=== PATIENT | male | born 1950 | race Hispanic/Latino ===

== ENCOUNTER 2020-04-07 12:34 | Outpatient (CLI) | payer MEDICARE, SELFPAY ==
--- NOTE | ~2020-04-07 | CT_ITS ---
EXAMINATION: CT chest high resolution wo vt DATE: 04/07/2020 13:03 INDICATION: Bronchiectasis, uncomplicated TECHNIQUE: Computed tomography (CT) of the chest was performed without intravenous contrast. The dose -length product (DLP) was 129.52 mGy-cm. Automated exposure control and iterative reconstruction tech [employer] were employed. COMPARISON: 06/11/2019 FINDINGS: There are stable upper lung zone predominant nodules, some of which are seen in a perilymph atic distribution. There is widespread bronchiectasis, also stable relative to the comparison examina tion. Subpleural groundglass and reticular opacities are seen with areas of honeycombing is identifie d in some areas. There is no pleural effusion or pneumothorax. Mild mediastinal lymphadenopathy persi sts without change. The heart size is normal. There is mild thoracic spondylosis. IMPRESSION: 1. Chronic interstitial lung disease in a pattern of nonspecific interstitial pneumonia (NSIP) and us ual interstitial pneumonia (UIP). 2. Stable perilymphatic nodules in the upper lung zones, consistent with sarcoid, pneumoconiosis, or other granulomatous disease. 3. Mild mediastinal lymphadenopathy, likely reactive. Reviewed, dictated and finalized at location B. IMPRESSION: 1. Chronic interstitial lung disease in a pattern of nonspecific interstitial p neumonia (NSIP) and usual interstitial pneumonia (UIP). 2. Stable perilymphatic nodules in the upper lung zones, consistent with sarcoi d, pneumoconiosis, or other granulomatous disease. 3. Mild mediastinal lymphadenopathy, likely reactive.
== END 2020-04-07 12:35 | disposition home or self-care (01) ==
PROVIDERS: PCP Registered Nurse; Visit Provider Nurse Practitioner Family
DX: J47.9 Bronchiectasis, uncomplicated (principal); R91.8 Other nonspecific abnormal finding of lung field
CPT/HCPCS: 71250

== ENCOUNTER 2020-04-08 07:13 | Outpatient (NON) | payer MEDICARE, SELFPAY ==
[2020-04-08 18:30] LABS: SARS-CoV-2 RNA PCR Negative
== END 2020-04-08 07:14 ==
PROVIDERS: Visit Provider Internal Medicine Cardiovascular Disease
DX: R06.02 Shortness of breath (principal); Z20.828 Contact with and (suspected) exposure to other viral communicable diseases
CPT/HCPCS: 87635; C9803; U0003

== ENCOUNTER 2020-04-21 09:28 | Outpatient (CLI) | payer MEDICARE, SELFPAY ==
--- NOTE | 2020-04-21 | ECG_ITS ---
Measurements Intervals [place] Rate: 75 P: 12 KS: 156 QRS: -33 QRSD: 107 T: 6 QT: 341 QTc: 381 Interpretive Statements SINUS RHYTHM ATRIAL PREMATURE COMPLEX LEFT AXIS DEVIATION VOLTAGE CRITERIA FOR LVH MINIMAL Q WAVES- HIGH LATERAL LEADS BORDERLINE T WAVE ABNORMALITY- INFERIOR LEADS BORDERLINE ECG Electronically Signed On 04-21-2020 10:08:30 CDT by Elvin Dale D.O.
--- NOTE | ~2020-04-21 | XR_ITS ---
EXAMINATION: XR chest 2V DATE: 04/21/2020 09:51 INDICATION: Dyspnea. Cough. TECHNIQUE: Frontal and lateral views of the chest were obtained. COMPARISON: Chest CT 04/07/2020 FINDINGS: The lung volumes are normal. There is a diffuse coarse interstitial pattern in the lungs wi th architectural distortion. No pleural effusion or pneumothorax. The heart size is normal. IMPRESSION: 1. Stable diffuse lung disease, consistent with chronic interstitial lung disease. Reviewed, dictated and finalized at location B.
== END 2020-04-21 09:29 | disposition home or self-care (01) ==
PROVIDERS: PCP Registered Nurse; Visit Provider Registered Nurse
DX: R06.09 Other forms of dyspnea (principal); J98.4 Other disorders of lung
CPT/HCPCS: 71046; 93005

== ENCOUNTER 2020-08-07 12:31 | Outpatient (CLI) | payer MEDICARE, SELFPAY ==
--- NOTE | ~2020-08-07 | CT_ITS ---
EXAMINATION: CT chest wo con DATE: 08/07/2020 12:50 INDICATION: J47.9 - Bronchiectasis, uncomplicated J47.9 Bronchiectasis, uncomplicated TECHNIQUE: Computed tomography (CT) of the chest was performed without intravenous contrast. Addition al 3D reconstructions utilizing coronal maximum intensity projection (MIP) were performed. Automated exposure control and iterative reconstruction technique were employed. The dose-length product was 12 6.19 mGy-cm. COMPARISON: 04/07/2020 and 06/06/2016 FINDINGS: Again seen is diffuse bilateral varicose bronchiectasis scattered throughout all lobes of both lungs, worst in the lower lungs. There is a similar pattern of scattered irregular nodular opacities and ex tensive mosaic attenuation with regions of groundglass opacity as well as more lucent subsegmental ai r trapping. There has however been interval increase in the groundglass opacities in the posterior ba silar aspects of both lower lobes. There is peripheral cystic lung disease, unclear whether this repr esents honeycombing, paraseptal emphysema or more peripheral bronchiectasis. No pulmonary edema or pl eural effusion. Heart size is normal. Small amount of scattered atherosclerotic coronary artery calci fic calcification. No pericardial effusion. There is enlargement of the central pulmonary arteries co nsistent with pulmonary arterial hypertension. Ectatic ascending thoracic aorta measuring up to 3.9 c m in maximal diameter. Unchanged mild mediastinal lymphadenopathy. Mild thoracic kyphosis with chroni c mild anterior wedging of several lower thoracic vertebral bodies. IMPRESSION: 1. Severe bilateral varicose bronchiectasis. 2. Diffuse bilateral chronic interstitial lung disease with some interval progression in the posterio r basilar lower lobes. Differential would include usual interstitial pneumonia (UIP) or nonspecific i nterstitial pneumonia (NSIP) pattern chronic interstitial lung disease, sarcoidosis or chronic infect ion. Reviewed, dictated and finalized at location A. ER PAINTER IMPRESSION: 1. Severe bilateral varicose bronchiectasis. 2. Diffuse bilateral chronic interstitial lung disease with some interval progr ession in the posterior basilar lower lobes. Differential would include usual i nterstitial pneumonia (UIP) or nonspecific interstitial pneumonia (NSIP) patter n chronic interstitial lung disease, sarcoidosis or chronic infection.
== END 2020-08-07 12:32 | disposition home or self-care (01) ==
PROVIDERS: PCP Registered Nurse; Visit Provider Nurse Practitioner Family
DX: J47.9 Bronchiectasis, uncomplicated (principal); J84.9 Interstitial pulmonary disease, unspecified
CPT/HCPCS: 71250

== ENCOUNTER 2020-08-19 00:54 | Outpatient (CLI) | payer MEDICARE, SELFPAY ==
[2020-08-19 20:16] LABS: SARS-CoV-2 RNA PCR Negative
== END 2020-08-19 00:55 | disposition home or self-care (01) ==
LOC: ANHCOVIDDT 00:55
PROVIDERS: PCP Registered Nurse; Visit Provider Internal Medicine Critical Care Medicine
DX: Z01.812 Encounter for preprocedural laboratory examination (principal); Z11.59 Encounter for screening for other viral diseases
CPT/HCPCS: 87635; C9803; U0003

== ENCOUNTER 2020-08-22 01:50 | Day surgery (SDC) | payer MEDICARE, SELFPAY ==
[2020-08-21 13:05] VITALS: BMI 21.4
[2020-08-22] VITALS (9 sets, daily range): BP systolic 97–124; BP diastolic 50–85; PULSE 70–85; RESP 17–33; TEMP 36.1–36.3; O2SAT 96–99
[2020-08-22] MEDS: LACTATED RINGERS 1,000 ML 150 ML IV CONT (11:28)
--- NOTE | 2020-08-22 11:32 | SUR.PREOP ---
1130 PATIENT COMPLAINS OF SOB, O2 APPLIES AT 2 L PER NASAL CANULA PULSE OX UPON ARRIVAL 88-94% ON ROOM AIR.
--- NOTE | 2020-08-22 11:45 | WPDANESEPPF ---
Anes - Initial Pre Proc Eval Procedure: Operation Date: 08/22/20 12:00 Proposed Procedures p Bronchoscopy - Haily Love MD Date/Time: 08/22/20 11:45 Surgeon: Haily Love MD Pre Op Diagnosis: bronchiectasis Patient Data Age: 69 Gender: M Height: 5 ft 6 in Weight: 21.4 kg Allergies Allergy/AdvReac Type Severity Reaction Status Date / Time No Known Allergies Allergy Unverified 06/29/20 10:24 Home Medications Medication Instructions Recorded Confirmed Type albuterol sulfate 2.5 mg INHALATION Q6H 11/23/19 08/21/20 History alpha lipoic acid 300 mg capsule 300 mg PO DAILY 11/23/19 08/21/20 History amitriptyline 50 mg tablet 100 mg PO ONCE 11/23/19 08/21/20 History aspirin 81 mg tablet,delayed 81 mg PO DAILY 11/23/19 08/21/20 History release fluticasone propionate 50 1 spray NASAL DAILY 11/23/19 08/21/20 History mcg/actuation nasal spray,suspension glipizide 5 mg tablet, extended 2.5 mg PO DAILY 11/23/19 08/21/20 History release 24 hr loratadine 10 mg tablet 10 mg PO DAILY 11/23/19 08/21/20 History montelukast 10 mg tablet 10 mg PO DAILY 11/23/19 08/21/20 History omega-3 fatty acids 1,000 mg 1,000 mg PO DAILY 11/23/19 08/21/20 History capsule pravastatin 40 mg tablet 40 mg PO DAILY 11/23/19 08/21/20 History telmisartan 40 mg tablet 40 mg PO DAILY 11/23/19 08/21/20 History omeprazole 20 mg capsule,delayed 20 mg PO BID cap 12/06/19 08/21/20 History release albuterol sulfate 90 mcg/actuation 2 puff INHALATION Q4-6H PRN #8.5 gm 12/24/19 08/21/20 Rx aerosol inhaler Acapella (flutter) valve #1 ea 03/31/20 06/29/20 Rx acetylcysteine 200 mg/mL (20 %) 1 ml INHALATION BID ml 06/29/20 08/21/20 History solution budesonide-formoterol HFA 160 2 puff INHALATION Q12H #10.2 g 06/29/20 08/21/20 Rx mcg-4.5 mcg/actuation aerosol inhaler ipratropium bromide 0.02 % 2.5 ml INHALATION Q6H PRN #360 ml 06/29/20 08/21/20 Rx solution for inhalation Laboratory Tests 08/22/20 08/22/20 11:20 11:20 Sodium Pending Potassium Pending Chloride Pending Carbon Dioxide Pending Anion Gap Pending BUN Pending Creatinine Pending Estim Creat Clear Calc Pending Estimated GFR Pending Glucose Cancelled Pending Calcium Pending Patient hx anesthesia problems: none Family hx anesthesia problems: none PMFSH Past Medical History Medical History Anxiety Bronchiectasis COPD (chronic obstructive pulmonary disease) Cough Diabetes Fatty liver GERD (gastroesophageal reflux disease) Hypertension Left renal mass Rhinitis Surgical History Surgical History History of vasectomy Family History Family History Father Diabetes mellitus Mother Diabetes mellitus Father Diabetes mellitus, Onset Age: 70 Mother Diabetes mellitus Social History Social History Smoking status: Never smoker Alcohol intake: current Drinks per week: 3 Alcohol use details: MAY HAVE 2 TO 3 BEERS PER WEEK Substance use: never Substance use type: does not use Living arrangements: with family Spiritual care concerns: No Anes - Eval Final PreProcedure Day of Procedure 08/22/20 11:45 Patient weight: normal Heart: regular rate and rhythm Lungs: decreased breath sounds Airway: Mallampati scale class II and special considerations poor dentition Neurological: alert and oriented Last oral intake: >/= 8 hours ASA classification: IV Emergent: no Anesthetic plan: proceed Anesthesia type and monitoring: general LMA and standard monitoring Informed Consent: The patient's anesthetic plan and its attendant risks and benefits were discussed with the patient/family/P
[2020-08-22 12:08] LABS: Glucose Point of Care 108 (65-105)
--- NOTE | 2020-08-22 12:14 | PM.IMHP ---
H&P: HPI History of Present Illness Date/Time: 08/22/20 12:14 Chief complaint: bronchiectasis Narrative: Jasson Greenfield is a 69 year old male with ILD of yet unknown etiology. I was asked to assess him by our nurse practioner Pierer Hudson. I viewed his HRCT of the chest and it does not appear to be UIP/IPF pattern. He has no significant smoking history, no occupational risk factors. He's never amiodarone,macrobid or other lung toxic meds. He says he's been getting more and more short of breath over the past 3 years. He has a pet bird at home since that time but he's not sure what time of bird. He denies productive cough, fever chills or night sweats but he's short of breath with simple things such as getting dressed and he also admits to weight loss. Other significant family history includes a mother who had TB but he denies hemoptysis or night sweats. Review of Systems Review of Systems: All systems reviewed & are unremarkable except as noted in HPI and below PMFSH Past Medical History Medical History (Updated 08/22/20 @ 12:33 by Haily Love MD) Anxiety Bronchiectasis COPD (chronic obstructive pulmonary disease) Cough Diabetes Fatty liver GERD (gastroesophageal reflux disease) Hypertension Left renal mass Rhinitis Surgical History Surgical History History of vasectomy Family History Family History Father Diabetes mellitus Mother Diabetes mellitus Father Diabetes mellitus, Onset Age: 70 Mother Diabetes mellitus Social History Social History Smoking status: Never smoker Alcohol intake: current Drinks per week: 3 Alcohol use details: MAY HAVE 2 TO 3 BEERS PER WEEK Substance use: never Substance use type: does not use Living arrangements: with family Spiritual care concerns: No Meds Home Medications and Allergies Home Medications Medication Instructions Recorded Confirmed Type albuterol sulfate 2.5 mg INHALATION Q6H 11/23/19 08/21/20 History alpha lipoic acid 300 mg capsule 300 mg PO DAILY 11/23/19 08/21/20 History amitriptyline 50 mg tablet 100 mg PO ONCE 11/23/19 08/21/20 History aspirin 81 mg tablet,delayed 81 mg PO DAILY 11/23/19 08/21/20 History release fluticasone propionate 50 1 spray NASAL DAILY 11/23/19 08/21/20 History mcg/actuation nasal spray,suspension glipizide 5 mg tablet, extended 2.5 mg PO DAILY 11/23/19 08/21/20 History release 24 hr loratadine 10 mg tablet 10 mg PO DAILY 11/23/19 08/21/20 History montelukast 10 mg tablet 10 mg PO DAILY 11/23/19 08/21/20 History omega-3 fatty acids 1,000 mg 1,000 mg PO DAILY 11/23/19 08/21/20 History capsule pravastatin 40 mg tablet 40 mg PO DAILY 11/23/19 08/21/20 History telmisartan 40 mg tablet 40 mg PO DAILY 11/23/19 08/21/20 History omeprazole 20 mg capsule,delayed 20 mg PO BID cap 12/06/19 08/21/20 History release albuterol sulfate 90 mcg/actuation 2 puff INHALATION Q4-6H PRN #8.5 gm 12/24/19 08/21/20 Rx aerosol inhaler Acapella (flutter) valve #1 ea 03/31/20 06/29/20 Rx acetylcysteine 200 mg/mL (20 %) 1 ml INHALATION BID ml 06/29/20 08/21/20 History solution budesonide-formoterol HFA 160 2 puff INHALATION Q12H #10.2 g 06/29/20 08/21/20 Rx mcg-4.5 mcg/actuation aerosol inhaler ipratropium bromide 0.02 % 2.5 ml INHALATION Q6H PRN #360 ml 06/29/20 08/21/20 Rx solution for inhalation Allergies Allergy/AdvReac Type Severity Reaction Status Date / Time No Known Allergies Allergy Unverified 06/29/20 10:24 Exam Const: General: cooperative, healthy appearing, comfortable, no acute distress, well developed, alert, awake and Physically active Nutritional Appearance: average body habitus and thin Limitations: physical limitations HENMT: Head: normal to inspection, No palpable skull
[2020-08-22] MEDS: SODIUM CHLORIDE 0.9% IV 500 ML BAG 100 ML IRRIGATION (13:34)
[2020-08-22] MEDS: LIDOCAINE HCL 2% LOCAL INJ 20 ML VIAL 6 ML INFILTRATE (13:35)
--- NOTE | 2020-08-22 13:35 | SUR.OPER ---
NORMAL SALINE IRRIGATION WITH 100ML TO LEFT MIDDLE LOBE WITH RETURN OF 25ML BAL
[2020-08-22 18:41] LABS: Appearance Bronchial Fluid Clear; Color Bronchial Fluid Colorless; Lymphocytes Bronchial Fluid 7 %; Neutrophils Bronchial Fluid 65 %; Source Bronchial Fluid Bronchial Lavage
[2020-08-22 18:42] LABS: Eosinophils Bronchial Fluid 5 %; Macrophages Bronchial Fluid 23
== END 2020-08-22 14:15 | disposition home or self-care (01) ==
PROVIDERS: PCP Registered Nurse; Visit Provider Internal Medicine Critical Care Medicine
PROC: 0BJ08ZZ Inspection of Tracheobronchial Tree, Via Natural or Artificial Opening Endoscopic (ICD-10-PCS; CPT 31622; principal; 2020-08-22 12:00)
DX: J47.9 Bronchiectasis, uncomplicated (principal); Z79.82 Long term (current) use of aspirin; F41.9 Anxiety disorder, unspecified; E11.9 Type 2 diabetes mellitus without complications; K76.0 Fatty (change of) liver, not elsewhere classified; K21.9 Gastro-esophageal reflux disease without esophagitis; I10 Essential (primary) hypertension; N28.89 Other specified disorders of kidney and ureter; J84.9 Interstitial pulmonary disease, unspecified; Z79.51 Long term (current) use of inhaled steroids
CPT/HCPCS: 31624; 36415; 85999; 87015; 87070; 87075; 87116; 87205; 87206; 88104; 88108; 88184; 88305; J0330; J2704; J7040; J7120